=== PATIENT | male | born 1970 | race Caucasian/White ===

== ENCOUNTER → 2023-08-20 | Outpatient (CLI) | LOC: M SOG 09:13 | PROVIDERS: ATTEND Physician Assistant | DX: M25.531 Pain in right wrist (principal); M25.532 Pain in left wrist ==

== ENCOUNTER 2023-09-14 06:42 | Day surgery (SDC) | payer OTHER ==
[~2023-09-14] VITALS: Ht 180.3 cm; Wt 107.0 kg
[~2023-09-14 06:42] MED LIST: ATEN50TA2 PO; FLUO40CA PO; MELO15TA28 PO; METF10004 PO
[2023-09-14] MEDS ORDERED: LR 1,000 ML IV SCH (07:30)
[2023-09-14] MEDS ORDERED: propofoL 200 MG/20 ML VIAL As Ordered ONE (08:03)
[2023-09-14] MEDS ORDERED: MIDAZOLAM INJ 2MG/2ML VIAL As Ordered ONE (08:03)
[2023-09-14] MEDS ORDERED: LIDOCAINE 2% 100MG/5ML SDV (FOR ANES.) As Ordered ONE (08:03)
[2023-09-14] MEDS ORDERED: fentaNYL 100 MCG/2 ML INJECTION As Ordered ONE ×2 (08:03→09:39)
[2023-09-14] MEDS ORDERED: BACITRACIN OINTMENT 30GM TUBE As Ordered ONE ×2 (09:01→10:10)
[2023-09-14] MEDS ORDERED: ONDANSETRON 4MG 2ML VIAL As Ordered ONE (09:23)
[2023-09-14] MEDS ORDERED: KETOROLAC 60MG 2ML VIAL As Ordered ONE (09:23)
[2023-09-14] MEDS ORDERED: ACETAMINOPHEN 1000MG 100ML IV BAG As Ordered ONE (09:23)
[2023-09-14] MEDS ORDERED: oxyCODONE 5MG TAB PO PRN (09:50)
[2023-09-14] MEDS ORDERED: ONDANSETRON 4MG 2ML VIAL IV PRN (09:50)
[2023-09-14] MEDS ORDERED: fentaNYL 100 MCG/2 ML INJECTION IV PRN (09:50)
[2023-09-14 10:55] VITALS: BP 171/95; TEMP 97.8; O2SAT 95
== END 2023-09-14 11:17 | disposition home or self-care (01) ==
LOC: M SDC 06:42
PROVIDERS: ATTEND Orthopaedic Surgery Hand Surgery
DX: G56.01 Carpal tunnel syndrome, right upper limb (principal); E11.9 Type 2 diabetes mellitus without complications; F41.9 Anxiety disorder, unspecified; F32.A Depression, unspecified; I10 Essential (primary) hypertension; Z88.8 Allergy status to other drugs, medicaments and biological substances; F17.210 Nicotine dependence, cigarettes, uncomplicated; Z79.899 Other long term (current) drug therapy; Z79.84 Long term (current) use of oral hypoglycemic drugs
CPT/HCPCS: 29848; J0131; J0665; J1100; J1885; J2250; J2405; J3010

== ENCOUNTER → 2025-10-03 | Outpatient (CLI) | payer OTHER ==
[~2025-10-03] MED LIST changes: +TRAM50TA2
== END ==
LOC: M RAD 08:39
PROVIDERS: ATTEND Registered Nurse
DX: Z12.2 Encounter for screening for malignant neoplasm of respiratory organs (principal); F17.210 Nicotine dependence, cigarettes, uncomplicated; R91.1 Solitary pulmonary nodule; K44.9 Diaphragmatic hernia without obstruction or gangrene; M47.815 Spondylosis without myelopathy or radiculopathy, thoracolumbar region; M41.9 Scoliosis, unspecified; I70.0 Atherosclerosis of aorta